=== PATIENT | female | born 1965 | race Caucasian/White ===

== ENCOUNTER 2017-10-25 12:52 | Emergency (ER) | payer OTHER ==
[~2017-10-25] VITALS: Ht 162.6 cm; Wt 87.6 kg
[~2017-10-25 12:52] MED LIST: ALBUTEROL SULF8.5 GM IH; AMBIEN10 MG PO; ASPIR-TRIN325 M1 PO; AZITHROMYCIN500 M1 PO; BENTYL10 MG PO; CLONAZEPAM2 MG PO; DEPAKOTE ER250 MG PO; DEPAKOTE ER500 MG PO; DEPAKOTE250 MG PO; DEPAKOTE500 MG PO; DICLOXACILLIN500 MG PO; DIVALPROEX SOD500 M1 PO; DIVALPROEX SOD500 MG PO; DOXYCYCLINE HY100 M3 PO; FLEXERIL10 MG PO; FLUOXETINE HCL60 MG PO; GABAPENTIN300 MG PO; HYCODAN SYRUP480 ML PO; HYDROCHLOROTH12.5 M3 PO; KLONOPIN1 MG PO; KLONOPIN2 MG PO; LEVAQUIN750 MG PO; MELOXICAM15 MG PO; MINIPRESS2 MG PO; MOBIC7.5 MG PO; MOTRIN600 MG PO; MOTRIN800 MG PO; NAPROSYN500 MG PO; NAPROXEN500 MG PO; NOHOMEMEDS; NORCO 5/3251 TABLET PO; OLANZAPINE5 MG PO; PAROXETINE HCL40 MG PO; PAXIL20 MG PO; PAXIL40 MG PO; PEPCID20 MG PO; PHENERGAN-CODE120 ML PO; PRAZOSIN HCL2 MG PO; PROMETHAZINE HC25 M1 PO; PROZAC20 MG PO; PROZAC40 MG PO; Prilosec PO; TESSALON PERLE100 MG PO; TORADOL10 MG PO; TRAMADOL HCL50 MG PO; TYLENOL WITH C1 EACH PO; ULTRAM50 MG PO; ZITHROMAX250 MG PO; ZOFRAN ODT4 MG PO; ZOFRAN4 MG PO; ZYPREXA5 MG PO
[2017-10-25 13:20] LABS: HEMATOCRIT 40.8 % (36.0-46.0); HEMOGLOBIN 13.8 G/DL (11.9-15.5); MCH 29.9 PG (29.0-34.0); MCHC 33.8 G/DL (30.0-36.0); MCV 88.5 FL (83-99); PLATELET COUNT 272 K/uL (156-360); RBC DIS.WIDTH-CV 11.6 % (11.8-14.6); RBC DIS.WIDTH-SD 37.1 % (39-53); RED BLOOD COUNT 4.61 M/uL (3.80-5.20)
[2017-10-25 13:31] LABS: CHLORIDE 102 mEq/L (99-109); POTASSIUM 3.9 mEq/L (3.7-5.4); SODIUM 136 mEq/L (136-147)
[2017-10-25 13:33] LABS: GLUCOSE 96 mg/dL (70-99)
[2017-10-25 13:37] LABS: CREATININE 0.7 mg/dL (0.6-1.3); GFR ESTIMATE (CALCULATED) > 59 mL/min/; UREA NITROGEN (BUN) 12 mg/dL (9-23)
[2017-10-25] MEDS ORDERED: ZOFRAN4 MG PO (16:13)
[2017-10-25] MEDS ORDERED: CHERATUSSIN AC473 ML PO (16:13)
[2017-10-25] MEDS ORDERED: PREDNISONE10 M1 PO (16:13)
[2017-10-25 16:40] VITALS: BP 142/90
== END 2017-10-25 16:41 | disposition home or self-care (01) ==
LOC: EME 12:52
DX: J06.9 Acute upper respiratory infection, unspecified (principal); F41.9 Anxiety disorder, unspecified; Z87.891 Personal history of nicotine dependence; Z87.01 Personal history of pneumonia (recurrent); Z87.442 Personal history of urinary calculi
CPT/HCPCS: 71046; 80048; 85027; 87502; 99281; 99284